=== PATIENT | female | born 1955 | race Caucasian/White ===

== ENCOUNTER 2024-02-02 14:53 | Emergency (ER) | payer MEDICARE, OTHER, SELFPAY ==
[2024-02-02 15:05] VITALS: BP 110/58
[2024-02-02 15:36] LABS: % Basophils 0.3 % (0-2); % Eosinophils 1.2 % (0-6); % Immature Granulocytes 0.4 % (0-0.5); % Lymphocytes 27.8 % (20.5-51.1); % Monocytes 6.1 % (1.7-9.3); % Neutrophils 64.2 % (42.2-75.2); Absolute Eosinophils 0.1 10^3/uL (0-0.7); Absolute Lymphocytes 2.7 10^3/uL (1.2-3.4); Absolute Monocytes 0.6 10^3/uL (0.1-0.6); Absolute Neutrophils 6.2 10^3/uL (1.4-6.5); Hematocrit 36.3 % (37.0-47.0); Hemoglobin 11.9 g/dL (12.0-16.0); Mean Corp Hgb Conc. 32.8 g/dL (33.0-37.0); Mean Corpuscular Hgb 29.5 pg (27.0-31.0); Mean Corpuscular Volume 90.1 fL (81.0-99.0); Mean Platelet Volume 9.5 fL (7.4-10.4); Nucleated Red Blood Cells % 0 %; Platelet Count 332 10^3/uL (130-400); Red Blood Cell Count 4.03 10^6/uL (4.20-5.40); Red Cell Dist. Width 13.3 % (11.5-14.5); White Blood Cell Count 9.7 10^3/uL (4.8-10.8)
[2024-02-02 15:45] LABS: ALT (SGPT) 11 U/L (0-35); AST (SGOT) 22 U/L (14-36); Albumin 4.1 g/dl (3.5-5.0); Alkaline Phosphatase 71 U/L (38-126); Blood Urea Nitrogen 10 mg/dl (7-17); Calcium 9.3 mg/dl (8.4-10.2); Carbon Dioxide 26 mmol/L (22-30); Chloride 106 mmol/L (98-107); Glucose 106 mg/dl (70-99); Potassium 4.1 mmol/L (3.5-5.1); Sodium 140 mmol/L (135-145); Total Bilirubin 0.4 mg/dl (0.2-1.3); Total Protein 6.3 g/dl (6.3-8.2); eGFR > 60.00
[2024-02-02 16:10] LABS: Lipase 78 U/L (23-300)
[2024-02-02] MEDS: ZOFRAN 4 MG IV (18:04)
[2024-02-02] MEDS: NSS 1000 IV (18:04)
--- NOTE | 2024-02-02 19:27 | ED.GENMED ---
History of Present Illness
General
Chief Complaint: Abdominal Pain
Source: patient
Exam Limitations: none
Time Seen by Provider: 02/02/24 17:19
Nursing documentation reviewed up to this point in time: agreed with
History of Present Illness
History of Present Illness:
68-year-old female presents emergency room complaining of right-sided abdominal pain ongoing for the past 12 days. She denies fevers. She had nausea and vomiting today. She had a CT scan 3 days ago that was normal, except showing a pancreatic
cyst. Ultrasound of the abdomen also normal except for hepatic steatosis and pancreatic cyst. She has an appointment tomorrow with her primary care doctor, and an MRI ordered.
Past History
Past History
ED Past Medical History: None
ED Past Surgical History: Gynecological (Hysterectomy) and Other (Cataract surgery, thyroid removal)
Social History
Tobacco: Non-smoker
Alcohol: None
Drug: None
Review of Systems
Review of Systems
Allergies reviewed?: Yes
All Other Systems: Not applicable
Constitutional: Reports no symptoms
EENT: Reports no symptoms
Respiratory: Reports no symptoms
Cardiac: Reports no symptoms
ABD/GI: Reports abdominal pain, nausea and vomiting
: Reports no symptoms
Musculoskeletal: Reports no symptoms
Skin: Reports no symptoms
Neurological: Reports no symptoms
Endocrine: Reports no symptoms
Hematologic/Lymphatic: Reports no symptoms
Psychiatric: Reports no symptoms
Phy Exam
Physical Exam
Physical Exam:
Physical Exam
General: no apparent distress, not acutely ill
Neck: supple. no meningeal signs. normal posterior pharynx
Heart: s1/s2 regular rate and rhythm, no murmur. equal radial
pulses.
HEENT: Pupils equal round reactive to light, EOMI
Lungs: no acute respiratory distress. clear bilaterally
Abdomen: normal bowel sounds. Slight right lower quadrant tenderness, no rebound or guarding. No CVAT
Neuro: alert and oriented. no focal neurological deficits cranial nerves II through XII intact
Skin: no rash
Psychiatric: well kept. interactive and cooperative
Extremities: no edema. no calf tenderness. negative homans. good distal pulses
Course
Orders/Labs/Results
Orders:
Orders
02/02/24 15:19
Complete Blood Count/With Diff Urgent
Comprehensive Metabolic Panel Urgent
Lactic Acid Urgent
Lipase Urgent
02/02/24 17:51
IV Insert/Care/Rem.- Treatment PRN
0.9% Sodium Chloride 1000 ml [Nss] 1,000 ml IV BOLUS
Ondansetron Injectable [Zofran] 4 mg IV NOW STA
Abnormal Lab Results
02/02/24
15:19
RBC 4.03 L 10^6/uL
(4.20-5.40)
Hgb 11.9 L g/dL
(12.0-16.0)
Hct 36.3 L %
(37.0-47.0)
MCHC 32.8 L g/dL
(33.0-37.0)
Glucose 106 H mg/dl
(70-99)
02/02/24 15:19
02/02/24 15:19
Vital Signs
Initial and Last Documented VS:
Initial Vital Signs
Temp Pulse Resp BP Pulse Ox
98.3 F 80 20 110/58 98
02/02/24 15:05 02/02/24 15:05 02/02/24 15:05 02/02/24 15:05 02/02/24 15:05
Last Documented Vital Signs
Temp Pulse Resp BP Pulse Ox
98.3 F 80 18 110/58 98
02/02/24 15:05 02/02/24 15:05 02/02/24 16:00 02/02/24 15:05 02/02/24 15:05
MDM/Problems Addressed
Differential Diagnosis Includes:
Appendicitis, UTI
MDM/Problems Addressed:
68-year-old female with right lower quadrant abdominal pain, likely viral cause. Abdomen exam benign. No urinary symptoms. Stable for discharge.
*Pulse Oximetry
Patient hypoxic: no
*Critical Care Note
Total Time (30-74mins, 75-104mins- exclusive of procedures): Not Applicable
Data Reviewed
Review of Other/Old Records Reveals: Radiology Studies (Ultrasound abdomen shows hepatic steatosis, pancreatic cysts, CT abdomen pelvis shows pancreatic cyst, no acute findings. These were from [facility] 01/30/2024)
Source: patient and records
Further Testing Considered But Not Given:
CT abdomen pelvis not indicated
Patient Management
Social determinants of health affecting care: Living situation
Escalation/DeEscalation of care consider admission/obs:
Admit not indicated
ED Attending Note
-
Portions of this chart may have been created with voice recognition software.� Occasional wrong word or��sound alike� substitutions may have occurred due to the inherent limitations of voice recognition software.
Discharge Plan
Departure
Patient Disposition: Home (Routine Discharge)
Date of Disposition: 02/02/24
Time of Disposition: 19:24
Patient with high blood pressure during this ER visit?: No
Condition: Good
Discharge Problem:
Abdominal pain, Nausea
Instructions: Nausea and Vomiting, Adult (DC), Abdominal Pain
Prescriptions:
New
ondansetron 4 mg tablet,disintegrating
4 mg PO Q8H PRN (Reason: nausea and vomiting) 4 Days Qty: 10 0RF
Referrals:
Anurag Fenton MD [Family Provider] - Call in 1-3 days for appt
Interventions
Interventions:
*Risk Screen - Suicide Last Done: 02/02/24 17:52
*General Assessment Last Done: 02/02/24 17:52
*Neglect/Abuse Screening Last Done: 02/02/24 17:51
*ED COVID-19 Vaccine History Last Done: 02/02/24 17:51
AQ-Elflri-Hkqfyzvnha Assessment Last Done: 02/02/24 17:49
Discharge Date and Time
Print Language: WOLOF
== END 2024-02-02 19:57 | disposition home or self-care (01) ==
LOC: EMR 14:53
PROVIDERS: Emergency Medicine; EMERGENCY PHYSICIAN Emergency Medicine; FAMILY PHYSICIAN Family Medicine
DX: R10.31 Right lower quadrant pain (principal); R11.2 Nausea with vomiting, unspecified
CPT/HCPCS: 99284; 96374; 96361; 80053; 83605; 83690; 85025

== ENCOUNTER 2024-05-02 06:24 | Day surgery (SDC) | payer MEDICARE, OTHER, SELFPAY | END 2024-05-03 11:03 | disposition home or self-care (01) | LOC: GI 06:24 | PROVIDERS: ATTENDING PHYSICIAN Internal Medicine | DX: K29.50 Unspecified chronic gastritis without bleeding (principal); K31.89 Other diseases of stomach and duodenum; R13.10 Dysphagia, unspecified | CPT/HCPCS: 43239; 88305; 88342 ==

== ENCOUNTER → 2024-06-25 13:19 | Outpatient (REF) | payer MEDICARE, OTHER, SELFPAY | LOC: HWRAD 13:19 | PROVIDERS: ATTENDING PHYSICIAN Podiatrist Foot & Ankle Surgery; FAMILY PHYSICIAN Family Medicine | DX: M67.472 Ganglion, left ankle and foot (principal) | CPT/HCPCS: 73630 ==

== ENCOUNTER → 2024-10-09 11:02 | Outpatient (REF) | payer MEDICARE, OTHER, SELFPAY | LOC: MRI 11:02 | PROVIDERS: ATTENDING PHYSICIAN Internal Medicine; FAMILY PHYSICIAN Family Medicine | DX: K86.2 Cyst of pancreas (principal) | CPT/HCPCS: 74183; A9575 ==